=== PATIENT | female | born 1950 | race Caucasian/White ===

== ENCOUNTER → 2016-09-02 | Outpatient (CLI) | payer BC ==
[~2016-09-02] MED LIST: ASPEC81 PO; DOXY25TA7 PO; FLUT0.15 NAE; FLUT50SP14 NAE; LISI-725 PO; PRLSR20 PO; TRAV0.00 OPB
[2016-09-02 13:36] LABS: BASO % 0.7 %; BASO ABS # 0.05 K/uL (0-0.2); COMPLETE YES; EOS % 3.5 %; HEMATOCRIT 48.8 % (37-47); IG% 0.1 %; LYMPH % 35.6 %; LYMPH ABS # 2.73 K/uL (1.2-3.4); MEAN CORPUSCULAR HEMOGLOBIN 31.8 pg (25-34); MEAN CORPUSCULAR HGB CONC 32.8 g/dl (32-36); MEAN PLATELET VOLUME 11.5 fL (7.4-10.4); MONO % 4.6 %; NEUT % 55.5 %; PLATELET COUNT 211 K/uL (130-400); RED BLOOD COUNT 5.03 M/uL (4.2-5.4); WHITE BLOOD COUNT 7.66 K/uL (4.8-10.8)
[2016-09-02 13:45] LABS: ESTIMATED AVERAGE GLUCOSE 117 mg/dl; HA1C FLAG Normal (Normal)
[2016-09-02 13:53] LABS: ALT/SGPT 131 U/L (12-78); BLOOD UREA NITROGEN 17 mg/dl (7-18); BUN/CREATININE RATIO 12.2 (10-20); CARBON DIOXIDE 25 mmol/L (21-32); CHLORIDE 103 mmol/L (98-107); CHOLESTEROL 241 mg/dl (0-200); GLUCOSE 98 mg/dl (70-99); POTASSIUM 4.2 mmol/L (3.5-5.1); SODIUM 137 mmol/L (136-145); TRIGLYCERIDES 203 mg/dl (0-150); VERY LOW DENSITY LIPOPROT CALC 41 mg/dl
[2016-09-02 13:56] LABS: ALB/GLOB RATIO 0.9 (0.9-2); ALKALINE PHOSPHATASE 101 U/L (45-117); AST/SGOT 79 U/L (15-37); HDL CHOLESTEROL 48 mg/dl; LDL CHOLESTEROL CALCULATED 152 mg/dl; PHOSPHORUS 3.3 mg/dl (2.5-4.9)
[2016-09-02 14:55] LABS: CALCIUM 9.1 mg/dl (8.5-10.1)
== END | disposition home or self-care (01) ==
LOC: C.LABPVFM 09:13
PROVIDERS: ATTEND Family Medicine
DX: N18.3 Chronic kidney disease, stage 3 (moderate) (principal); E11.22 Type 2 diabetes mellitus with diabetic chronic kidney disease; Z13.220 Encounter for screening for lipoid disorders

== ENCOUNTER → 2016-10-05 | Outpatient (CLI) | payer BC ==
[2016-10-05 17:58] LABS: BLOOD UREA NITROGEN 13 mg/dl (7-18); BUN/CREATININE RATIO 9.8 (10-20); CALCIUM 9.1 mg/dl (8.5-10.1); CARBON DIOXIDE 26 mmol/L (21-32); CHLORIDE 104 mmol/L (98-107); GLUCOSE 141 mg/dl (70-99); POTASSIUM 4.1 mmol/L (3.5-5.1); SODIUM 139 mmol/L (136-145)
== END | disposition home or self-care (01) ==
LOC: C.LABPVFM 13:32
PROVIDERS: ATTEND Nurse Practitioner
DX: N28.9 Disorder of kidney and ureter, unspecified (principal)

== ENCOUNTER → 2017-01-10 | Day surgery (SDC) | payer BC ==
[2017-01-03 10:47] VITALS: Ht 154.9 cm; Wt 62.7 kg
[~2017-01-10] VITALS: Ht 154.9 cm; Wt 62.7 kg
[~2017-01-10] MED LIST changes: -ASPEC81 PO; -FLUT50SP14 NAE; +LIDOCAINE HCL 2% 2 ML VIAL (20MG/ML) ONE; +MIDAZOLAM HCL 1 MG/ML 2ML VIAL ONE; +ONDANSETRON INJ 2 MG/ML 2 ML VIAL ONE; -PRLSR20 PO; +PROPOFOL IV EMULSION 10 MG/ML 20 ML VIAL IV ONE; +SODIUM CHLORIDE 0.9% 500ML 500 ML IV ONE
--- NOTE | 2017-01-10 08:57 | Endo History and Physical ---
History & Physical Date of Service: Jan 10, 2017. Chief Complaint: History of polyps Referring Physician: Mady WILLS History of Present Illness 66 yo presenting for f/u of colonoscopy for f/u of polyps Past Medical History Heart Disease, Hypertension Past Surgical History Hx Cardiac Surgery: No Hx Internal Defibrillator: No Hx Pacemaker: No Hx Abdominal Surgery: Yes ( X2) Hx of Implantable Prosthesis: No Hx Post-Op Nausea and Vomiting: No Hx Cancer Surgery: No Hx Thoracic Surgery: No Hx Orthopedic: No Hx Urinary Tract Surgery: No Family History None Social History Smoking Status: Current Every Day Smoker Hx Substance Use: No Hx Alcohol Use: Yes ("ON THE WEEKENDS") Allergies Coded Allergies: Ibuprofen (Verified Allergy, Severe, THROAT SHUTS, 01/03/17) Amoxicillin (Verified Allergy, Intermediate, "STROKE SYMPTOMS", 01/03/17) Clindamycin (Verified Allergy, Mild, PT DOES NOT REMEMBER REACTION, ) Erythromycin (Verified Allergy, Mild, PT DOES NOT REMEMBER REACTION, 01/03) Penicillins (Unverified Allergy, Mild, PT DOES NOT REMEMBER REACTION, 01/10) Lactose Intolerance (GI) (Unverified Allergy, Unknown, GI UPSET-DIARRHEA, 01/03/17) Current Medications Reported Home Medications Medications Dose Route/Sig Max Daily Dose Days Date Category Flonase Allergy Relief (Fluticasone Propionate (Nasal)) 50 Mcg/Act Spr 2 [place] TIMMY DAILY PRN 01/03/17 Reported Unisom (Doxylamine Succinate (Sleep)) 25 Mg Tab 0.5 Tab PO HS PRN 01/03/17 Reported Travatan Z (Travoprost) 0.004 % [place] 1 Drops OPB HS 10/06/15 Reported Zestril (Lisinopril) 20 Mg Tab 20 Mg PO QAM 07/25/06 Reported Vital Signs Weight (Kilograms): 62.73 Height (Feet): 5 Height (Inches): 1 Date Time Temp Pulse Resp B/P (MAP) Pulse Ox O2 Delivery O2 Flow Rate FiO2 01/10/17 08:45 36.9 98 20 156/79 (104) 98 Room Air Physical Exam General Appearance: WD/WN, no apparent distress Respiratory/Chest: Respiratory effort: no dyspnea Auscultation: breath sounds normal, CTA except as noted Cardiovascular: Apical Impulse: not displaced Heart Auscultation: RRR, normal S1, normal S2 Abdomen: Bowel Sounds: normal Inspection & Palpation: soft, non-distended Assessment and Plan 66 yo presenting for f/u of colon polyps
--- NOTE | 2017-01-10 09:30 | GI REPORT ---
Procedure Date: 01/10/2017 8:52 AM Procedure: Colonoscopy Indications: High risk colon cancer surveillance: Personal history of colonic polyps Medicines: General Anesthesia Complications: No immediate complications. Estimated blood loss: None. Estimated Blood Loss: Estimated blood loss: none. Procedure: Pre-Anesthesia Assessment: - Pre-Anesthesia Assessment: - Prior to the procedure, a History and Physical was performed, and patient medications, allergies and sensitivities were reviewed. The patient's tolerance of previous anesthesia was reviewed. Please see [facility] for complete details. - The risks and benefits of the procedure and the sedation options and risks were discussed with the patient. All questions were answered and informed consent was obtained. - Patient identification and proposed procedure were verified prior to the procedure by the physician and the nurse. The procedure was verified in the pre-procedure area in the procedure room. After obtaining informed consent, the endoscope was passed carefully and meticuously under direct vision and only advanced when the lumen was clearly identified, C02 insuflation was utilized throughout the entirity of the procedure. Throughout the procedure, the patient's blood pressure, pulse, and oxygen saturations were monitored continuously. After I obtained informed consent, the scope was passed under direct vision. Throughout the procedure, the patient's blood pressure, pulse, and oxygen saturations were monitored continuously. The scope was introduced through the anus and advanced to the terminal ileum, with identification of the appendiceal orifice and IC valve. The colonoscopy was performed without difficulty. The patient tolerated the procedure well. The quality of the bowel preparation was fair. Findings: Two sessile polyps were found in the ascending colon. The polyps were 2 to 4 mm in size. These polyps were removed with a jumbo cold forceps. Resection and retrieval were complete. A 4 mm polyp was found in the sigmoid colon. The polyp was sessile. The polyp was removed with a jumbo cold forceps. Resection and retrieval were complete. Multiple small-mouthed diverticula were found in the sigmoid colon. The terminal ileum appeared normal. Internal hemorrhoids were found during retroflexion. The exam was otherwise without abnormality on direct and retroflexion views. Impression: - Two 2 to 4 mm polyps in the ascending colon, removed with a jumbo cold forceps. Resected and retrieved. - One 4 mm polyp in the sigmoid colon, removed with a jumbo cold forceps. Resected and retrieved. - Diverticulosis in the sigmoid colon. - The examined portion of the ileum was normal. - Internal hemorrhoids. - The examination was otherwise normal on direct and retroflexion views. Recommendation: - Discharge patient to home (with escort). - Repeat colonoscopy in 3 years for surveillance based on pathology results. - Return to referring physician as previously scheduled. Jairo Chau MD 01/10/2017 9:30:17 AM This report has been signed electronically. Note Initiated On: 01/10/2017 8:52 AM I attest to the content of the Intraoperative Record and orders documented therein, exceptions below
--- NOTE | 2017-01-10 09:32 | Discharge Instructions ---
Endoscopy Patient Instructions Date / Procedure(s) Performed Jan 10, 2017. Colonoscopy Allergy Information Coded Allergies: Ibuprofen (Verified Allergy, Severe, THROAT SHUTS, 01/03/17) Amoxicillin (Verified Allergy, Intermediate, "STROKE SYMPTOMS", 01/03/17) Clindamycin (Verified Allergy, Mild, PT DOES NOT REMEMBER REACTION, ) Erythromycin (Verified Allergy, Mild, PT DOES NOT REMEMBER REACTION, 01/03) Penicillins (Unverified Allergy, Mild, PT DOES NOT REMEMBER REACTION, 01/10) Lactose Intolerance (GI) (Unverified Allergy, Unknown, GI UPSET-DIARRHEA, 01/03/17) Discharge Date / Findings Jan 10, 2017. 3 small polyps, entirely removed Diverticuli Internal Hemorrhoids Provider Instructions Activity Restrictions - No exercising or heavy lifting for 24 hours. - Do not drink alcohol the day of the procedure. - Do not drive a car or operate machinery until the day after the procedure. - Do not make any important decisions or sign important papers in 24 hours after the procedure. Following Day: - Return to full activity which may include returning to work/school. Diet Start your diet with liquids and light foods (jello, soup, juice, toast). Then eat your usual diet if not nauseated. Treatment For Common After Affects For mild abdominal pain, bloating, or excessive gas: - Rest - Eat lightly - Lie on right side Follow-Up Information Follow-up with Mady WILLS as scheduled Anesthesia Information What You Should Know You have had a procedure that required some medicine to reduce anxiety and discomfort. This treatment is called moderate sedation. After receiving the treatment, you may be sleepy, but you will be able to breathe on your own. The effects of the treatment may last for several hours. Follow these instructions along with Activity/Diet recommendations noted above: * Do NOT do anything where dizziness or clumsiness would be dangerous. * Rest quietly at home today, then you can be up and about tomorrow. * Have a responsible person stay with you the rest of today. * You may have had an I.V. today. If so, you may take the dressing off later today. Recommendations Call your doctor if: * Trouble breathing * Continuous vomiting for more than 24 hours * Temperature above 101 degrees * Severe abdominal pain or bloating * Pain not relieved by pain medicine ordered * There is increased drainage or redness from any incision * A large amount of rectal bleeding greater than 2-3 tablespoons. (If you had a polyp/s removed or have hemorrhoids, a small amount of blood - from the rectum is to be expected.) * You have any unanswered questions or concerns. IN THE EVENT OF A SERIOUS EMERGENCY, GO TO THE NEAREST EMERGENCY ROOM Your discharge instructions were prepared by provider Jairo Chau. Patient Instructions Signature Page Di Johnston Patient (or Guardian) Signature/Date: I have read and understand the instructions given to me by my caregivers. Caregiver/RN/Doctor Signature/Date: The above-named patient and/or guardian has received patient instructions on this date. + Original Patient Signature Page (only) stays with chart. Please make copy for patient.
[2017-01-10 10:00] VITALS: BP 101/64; PULSE 78; O2SAT 100
--- NOTE | 2017-01-10 10:05 | Anesthesiology Progress Note ---
Anesthesia Post Op Note Date & Time Jan 10, 2017 at 10:05 Vital Signs Pain Intensity: 0 Vital Signs Past 12 Hours Date Time Temp Pulse Resp B/P (MAP) Pulse Ox O2 Delivery O2 Flow Rate FiO2 01/10/17 09:45 75 16 94/62 (73) 98 Room Air 01/10/17 09:30 85 16 92/59 (70) 97 Room Air 01/10/17 08:45 36.9 98 20 156/79 (104) 98 Room Air Notes Mental Status: alert / awake / arousable, participated in evaluation Pt Amnestic to Procedure: Yes Nausea / Vomiting: adequately controlled Pain: adequately controlled Airway Patency, RR, SpO2: stable & adequate BP & HR: stable & adequate Hydration State: stable & adequate Anesthetic Complications: no major complications apparent
== END | disposition home or self-care (01) ==
LOC: C.GI 08:27
PROVIDERS: ATTEND Internal Medicine
DX: Z12.11 Encounter for screening for malignant neoplasm of colon (principal); D12.2 Benign neoplasm of ascending colon; D12.4 Benign neoplasm of descending colon; K64.8 Other hemorrhoids; K57.30 Diverticulosis of large intestine without perforation or abscess without bleeding; Z86.010 Personal history of colon polyps; I51.9 Heart disease, unspecified; I10 Essential (primary) hypertension; F17.200 Nicotine dependence, unspecified, uncomplicated

== ENCOUNTER → 2017-01-20 | Outpatient (CLI) | payer BC ==
[~2017-01-20] MED LIST changes: -LIDOCAINE HCL 2% 2 ML VIAL (20MG/ML) ONE; -MIDAZOLAM HCL 1 MG/ML 2ML VIAL ONE; -ONDANSETRON INJ 2 MG/ML 2 ML VIAL ONE; -PROPOFOL IV EMULSION 10 MG/ML 20 ML VIAL IV ONE; -SODIUM CHLORIDE 0.9% 500ML 500 ML IV ONE
[2017-01-20 12:54] LABS: ALT/SGPT 99 U/L (12-78); BLOOD UREA NITROGEN 11 mg/dl (7-18); BUN/CREATININE RATIO 9.3 (10-20); CALCIUM 9.2 mg/dl (8.5-10.1); CARBON DIOXIDE 25 mmol/L (21-32); CHLORIDE 103 mmol/L (98-107); CHOLESTEROL 218 mg/dl (0-200); CREATININE 1.19 mg/dl (0.60-1.20); GLUCOSE 107 mg/dl (70-99); SODIUM 137 mmol/L (136-145)
[2017-01-20 12:57] LABS: ALB/GLOB RATIO 0.9 (0.9-2); ALKALINE PHOSPHATASE 93 U/L (45-117); AST/SGOT 73 U/L (15-37); CHOLESTEROL/HDL RATIO 4.8; HDL CHOLESTEROL 45 mg/dl; LDL CHOLESTEROL CALCULATED 135 mg/dl; TRIGLYCERIDES 189 mg/dl (0-150); VERY LOW DENSITY LIPOPROT CALC 38 mg/dl
== END | disposition home or self-care (01) ==
LOC: C.LABPVFM 09:18
PROVIDERS: ATTEND Nurse Practitioner
DX: E78.00 Pure hypercholesterolemia, unspecified (principal); I10 Essential (primary) hypertension; N28.9 Disorder of kidney and ureter, unspecified

== ENCOUNTER → 2017-10-11 | Outpatient (CLI) | payer BC ==
[~2017-10-11] MED LIST changes: -DOXY25TA7 PO; +DOXY25TA8 PO
--- NOTE | 2017-10-12 08:11 | MAMMOGRAPHY REPORT ---
BILATERAL DIGITAL SCREENING MAMMOGRAM TOMOSYNTHESIS WITH CAD: 10/11/2017 CLINICAL HISTORY: Routine screening. Patient has no complaints. TECHNIQUE: The study was acquired using full field digital technology and interpreted from soft copy. Breast tomosynthesis in addition to standard 2D mammography was performed. Current study was also ev aluated with a Computer Aided Detection (CAD) system. COMPARISON: Comparison is made to exams dated: 09/29/2008. Outside prior mammograms from [email or web address] 10/07/2016. BREAST COMPOSITION: There are scattered areas of fibroglandular density in both breasts. FINDINGS: No suspicious masses, calcifications, or areas of architectural distortion are noted in either breast . There has been no significant interval change compared to prior exams. Bilateral benign-appearing calcifications are not significantly changed. Asymmetry in the right lateral breast on the cc view i s stable. Small circumscribed benign-appearing masses in the left upper outer quadrant are stable an d compatible with benign intramammary lymph nodes. IMPRESSION: There is no mammographic evidence of malignancy. A 1 year screening mammogram is recommended.( [id number]) The patient will receive written notification of the results. Approximately 10% of breast cancers are not detected with mammography. A negative mammographic report should not delay biopsy if a clinically suggestive mass is present. Nithya Rivera M.D. ah/:10/11/2017 15:13:09 Electronic Engraver: Gracie Cardona, [facility] letter sent: Normal 1/2 BI-RADS Code: ACR BI-RADS Category 2: Benign
== END | disposition home or self-care (01) ==
LOC: C.MAMM 09:40
PROVIDERS: ATTEND Nurse Practitioner
DX: Z12.31 Encounter for screening mammogram for malignant neoplasm of breast (principal)